=== PATIENT | female | born 2000 | race Caucasian/White ===

== ENCOUNTER 2018-07-03 05:41 | Observation (INO) | payer OTHER ==
[2018-07-03] MEDS ORDERED: NS 1,000 ML IV ONE (05:47)
--- NOTE | 2018-07-03 05:48 | EDPHY ---
H & P Stated Complaint: Lower abd pain, started hurting worse after sex last night, nausea Time Seen by Provider: 07/03/18 05:48 HPI/ROS: HPI CHIEF COMPLAINT: Lower pelvic pain after intercourse. HISTORY OF PRESENT ILLNESS: Patient is a 18-year-old female she is otherwise healthy, however has a history of thyroid disease, presents to the emergency room with low pelvic pain. Patient reports that this pain started after having intercourse. The pain got worse after 3:00 a.m.. She has associated nausea but no vomiting. She complains of lower bilateral pelvic pain. No vaginal discharge, no vaginal bleeding. She has an IUD. She denies any right lower quadrant or upper abdominal pain. Denies chest pain or shortness of breath, denies fever. Denies urinary symptoms. Past Medical History: Thyroid disease Past Surgical History: denies significant surgical history Social History: Denies drugs alcohol tobacco. Family History: Noncontributory ROS REVIEW OF SYSTEMS: 10 Systems were reviewed and negative with the exception of the elements mentioned in the history of present illness. Exam Constitutional triage nursing summary reviewed, vital signs reviewed, awake/ alert. Eyes normal conjunctivae and sclera, EOMI, PERRLA. HENT normal inspection, atraumatic, moist mucus membranes, no epistaxis, neck supple/ no meningismus, no raccoon eyes. Respiratory clear to auscultation bilaterally, normal breath sounds, no respiratory distress, no wheezing. Cardiovascular rate normal, regular rhythm, no murmur, no edema, distal pulses normal. Gastrointestinal soft, non-tender, no rebound, no guarding, normal bowel sounds, no distension, no pulsatile mass. Genitourinary mild tender palpation bilateral adnexal regions, and suprapubic. No peritoneal signs. Musculoskeletal no midline vertebral tenderness, full range of motion, no calf swelling, no tenderness of extremities, no meningismus, good pulses, neurovascularly intact. Skin pink, warm, & dry, no rash, skin atraumatic. Neurologic awake, alert and oriented x 3, AAOx3, moves all 4 extremities equally, motor intact, sensory intact, CN II-XII intact, normal cerebellar, normal vision, normal speech. Psychiatric normal mood/affect. Heme/Lymph/Immune no lymphadenopathy. Differential Diagnosis: Differential diagnosis includes but is not limited to and in no particular order: Pelvic pain after intercourse including ruptured ovarian cyst, hemorrhagic ovarian cyst, ovarian torsion, , ectopic , IUD displacement, Bowel obstruction, appendicitis, gallbladder disease, diverticulitis, colitis, enteritis, perforated viscus, gastritis, GERD , esophagitis, urinary tract infection, pyelonephritis, kidney stones Medical Decision Making: Plan for this patient IV establishment, IV fluid, IV Toradol for pain control, basic labs, pelvic ultrasound and re-evaluate. Re-evaluation: Ultrasound of the pelvis reviewed ears ruptured left-sided hemorrhagic cyst complex focus of fluid next to left ovary free fluid in the pelvis. And right upper quadrant IUD in place. Patient re-evaluated 7:00 a.m. Continues to have pain. IV Dilaudid as been ordered. Given ongoing pain and ruptured ovarian cyst will consult OBGYN for possible admission for pain control and observation today. 0713: I spoke with Dr. Avelar. She has agreed to admit the patient for ruptured ovarian cyst and pain control and observation today. The patient prefer this prefer to be admitted for pain control and observation. test negative. Ultrasound shows hemoperitoneum. Patient is hemodynamically stable stable vital signs. Source: Patient - Personal History LMP (Females 10-55): IUD In Place Current Tetanus Diphtheria and Acellular Pertussis (TDAP): Yes - Medical/Surgical History Hx Asthma: No Hx Chronic Respiratory Disease: No Hx Diabetes: No Hx Cardiac Disease: No Hx Renal Disease: No Hx Cirrhosis: No Hx Alcoholism: No Hx HIV/AIDS: No Hx Splenectomy or Spleen Trauma: No Other PMH: Hypothyroid - Social History Smoking Status: Never smoked Constitutional: Initial Vital Signs Temperature (C) 36.9 C 07/03/18 05:42 Heart Rate 81 07/03/18 05:42 Respiratory Rate 18 07/03/18 05:42 Blood Pressure 113/84 H 07/03/18 05:42 O2 Sat (%) 98 07/03/18 05:42 O2 Delivery Mode Room Air Allergies/Adverse Reactions: egg Allergy (Verified 07/03/18 05:44) gluten Allergy (Verified 07/03/18 05:44) Milk Containing Products [dairy] Allergy (Verified 07/03/18 05:44) Home Medications: Medication Instructions Recorded Herbals/Supplements -Info Only 1 ea PO DAILY 07/03/18 Medical Decision Making - Data Points Laboratory Results: Laboratory Results 07/03/18 06:10 07/03/18 06:10 Medications Given: Discontinued Medications Hydromorphone HCl (Dilaudid) 0.5 mg IVP EDNOW ONE Stop: 07/03/18 06:47 Last Admin: 07/03/18 06:52 Dose: 0.5 mg Hydromorphone HCl (Dilaudid) 2 mg IVP Q4HRS PRN PRN Reason: Pain, Severe Unable to Take PO Stop: 07/13/18 12:28 Last Admin: 07/03/18 12:55 Dose: 2 mg Sodium Chloride (Ns) 1,000 mls @ 0 mls/hr IV EDNOW ONE; Wide Open PRN Reason: Protocol Stop: 07/03/18 05:48 Last Admin: 07/03/18 06:13 Dose: 1,000 mls Ketorolac Tromethamine (Toradol) 15 mg IVP EDNOW ONE Stop: 07/03/18 05:56 Last Admin: 07/03/18 06:14 Dose: 15 mg Departure - Departure Disposition: [facility] Clinical Impression: Pelvic pain in female, Ruptured ovarian cyst Condition: Good
[2018-07-03] MEDS ORDERED: KETOROLAC 15 MG/1 ML SDV IVP ONE (05:55)
[2018-07-03 06:20] LABS: PLATELET COUNT 275 10^3/uL (150-400)
[2018-07-03] MEDS ORDERED: HYDROmorphONE/DILAUDID 2 MG/ML INJ IVP ONE (06:46)
[2018-07-03 12:16] VITALS: BP 110/66
--- NOTE | 2018-07-03 12:16 | GHP ---
[f rep st] HISTORY AND PHYSICAL DATE OF ADMISSION: 07/03/2018 ADMITTING DIAGNOSIS: Lower bilateral abdominopelvic pain. HISTORY OF PRESENT ILLNESS: Patient is a 18-year-old nulliparous female with unknown last menstrual period who presented to the emergency department this morning with complaints of acute onset of lower bilateral abdominopelvic pain. Patient states she had intercourse last night and then her lower abdomen started hurting bilaterally around 0300 this morning. The pain became more intense and she came into into the emergency room. She describes pain and sharp , stabbing and started on left side and now on the right side and upper and lower abdomen. Pain is mostly localized with no radiation. Activity seems to exacerbated her pain and lying still in bed seems to help. She endorse nausea, but denies any vomiting. She denies any abnormal vaginal discharge or odor. She had the Danelle IUD placed 3 years ago in December and has irregular cycles "depending on her diet." Patient states she has lots of food allergies. She denies any history of exposure to sexually transmitted diseases. Denies any fevers, chills, or any urinary or bowel complaints at this time. Patient is a student here and lives in [place]. She does not have an FUR PLUCKER. Patient states pain is 4/[address] here on the floor and she has not received any pain medication for the last 5 hours. She notes decreased appetite, but no further nausea while lying in bed. PAST OB HISTORY: Patient is nulliparous. PATIENT CASE MANAGER HISTORY: Age of menarche was 10. She had the Danelle IUD placed 3 years ago in December and states cycles are irregular and it depends on her diet. Patient has not had a previous Pap smear and denies any exposure to any sexually transmitted diseases. PAST MEDICAL HISTORY: Remarkable for thyroid disease and anemia. PAST SURGICAL HISTORY: Root canal. MEDICATIONS: Supplements, multivitamin. ALLERGIES: Lots of food allergies. No known drug allergies. FAMILY HISTORY: Noncontributory. SOCIAL HISTORY: Patient is a student here. She is with her boyfriend. She denies any alcohol, tobacco, or illicit drug use. REVIEW OF SYSTEMS: Ten-point review of systems is negative. Pertinent positives noted in HPI. LABORATORY: White count 11.61, H and H 15.2 and 44.6. BMP is normal. Beta HCG qualitative is negative. Urine is normal except for trace ketones. STUDIES: Pelvic ultrasound reveals a normal-size uterus measuring 6 x 3 x 4 cm , anteverted, anteflexed with endometrium that is homogeneous, measuring 2.6 mm , with appropriately-positioned intrauterine device. Right ovary measures 3 x 2 cm and normal. Left ovary is 4 x 5 cm, and contains a 2 x 2 x 2 complex hemorrhagic cystic structure with no flow. In the adnexal regions, complex heterogenous material noted, and also complex free fluid in the right upper quadrant near Morison pouch. Normal arterial blood flow is documented to both ovaries. PHYSICAL EXAMINATION: Upon admission, vital signs are stable and patient is afebrile at 36.9, respirations 18, heart rate 81 and blood pressure of 113/84. GENERAL: Patient is a well-nourished, well-developed female. She is oriented x 3 in no apparent distress. SKIN: Warm, dry without rash. NEURO: Grossly intact. CARDIOVASCULAR: Heart is regular rate and rhythm. PULMONARY: Lungs are clear to auscultation bilaterally. ABDOMEN: Soft, nondistended, mild tenderness noted RLQ with voluntary guarding, but no rebound noted. PELVIC: Deferred at this time. EXTREMITIES: Normal to inspection without edema or calf tenderness. ASSESSMENT/PLAN: Patient is a 18-year-old nulliparous female with unknown last menstrual period with acute onset of bilateral lower abdominopelvic pain and a ruptured left hemorrhagic cyst. Plan: 1. Patient was admitted for observation for pain control. 2. Patient is hemodynamically stable at this time and there is not an acute abdomen on exam. 3. Discussed the findings of ultrasound and the complex fluid, most likely blood from ruptured hemorrhagic cyst on left ovary. This fluid can be very irritating to the pelvic organs and even surrounding organs. Discussed treatment options with continued observation with antiemetics and narcotics throughout today versus surgery and taking a look laparoscopically with removal of the blood in her abdomen. She really wants to go home at this time. 4. Prescriptions given for Dilaudid as well as Zofran ODT. 5. Written excuse given for her absence from school for today and tomorrow. 6. Patient is to follow up with me in my office in 1-2 weeks. 7. Patient instructed to return to the emergency room if symptoms are not improved and/or worsening. /[id number]/MODL MTDD
[2018-07-03] MEDS ORDERED: HYDROmorphONE/DILAUDID 1 MG/ML INJ IVP PRN (12:29)
[2018-07-03] MEDS ORDERED: ONDANSETRON 4 MG/2 ML VIAL IVP PRN (12:30)
== END 2018-07-03 13:03 | disposition home or self-care (01) ==
LOC: FOB 08:40
PROVIDERS: ADMIT Obstetrics & Gynecology; ATTEND Obstetrics & Gynecology
DX: N83.202 Unspecified ovarian cyst, left side (principal); E03.9 Hypothyroidism, unspecified; R10.2 Pelvic and perineal pain
CPT/HCPCS: 76856; G0378; 96374; J1170; J1885